=== PATIENT | female | born 1985 | race Caucasian/White ===

== ENCOUNTER 2022-03-09 11:48 | Inpatient (IN) | payer OTHER ==
[2022-03-09 12:25] VITALS: BMI 45.3
[2022-03-09] MEDS ORDERED: hydrALAZINE 20 MG/ML VIAL SLOW IVP PRN ×2 (12:47→13:26)
[2022-03-09] MEDS ORDERED: Labetalol HCl 100 MG/20 ML VIAL SLOW IVP PRN (12:47)
[2022-03-09] MEDS ORDERED: Promethazine HCl 25 MG/ML VIAL IM PRN (13:26)
[2022-03-09] MEDS ORDERED: Calcium Gluc 4.6 MEQ/10 ML (100 MG/ML) SLOW IVP PRN (13:26)
[2022-03-09] MEDS ORDERED: Lorazepam 2 MG/ML VIAL SLOW IVP PRN (13:26)
[2022-03-09] MEDS ORDERED: Magnesium Sulfate 20 gm/500 ml 20 GM/500 ML BAG ONE (13:41)
[2022-03-09] MEDS ORDERED: Betamet Acet/Betamet Na Ph 30 MG/5 ML VIAL ONE (13:54)
[2022-03-09 13:57] LABS: #Neutrophils 11.7 10x3/uL (1.5-8.4); %Basophils 0.1 % (0.0-2.0); %Eosinophils 0.1 % (0.0-6.0); %Lymphocytes 8.8 % (18.0-47.0); %Monocytes 7.2 % (0.0-10.0); %Neutrophils 83.2 % (40.0-75.0); Hemoglobin 13.4 g/dL (12.0-15.5); Mean Corpuscular HGB CONC 33.4 g/dL (32.0-36.0); Mean Corpuscular Hemoglobin 30.9 pg (27.0-33.0); Mean Corpuscular Volume 92.4 fl (81.6-98.3); Mean Platelet Volume 11.6 fl (7.4-10.4); Platelet Count 226 10x3/uL (150-450); RBC Distribution Width 13.2 % (11.5-14.5); Red Blood Cell (RBC) Count 4.34 10x6/uL (3.90-5.03); White Blood Cell (WBC) Count 14.1 10x3/uL (3.5-10.5)
[2022-03-09 14:01] LABS: ALT (SGPT) 17 U/L (8-55); AST (SGOT) 19 U/L (5-34); Albumin 3.6 g/dL (3.5-5.0); Alkaline Phosphatase 91 U/L (40-110); Anion Gap 16 mmol/L (10-20); BUN (Urea Nitrogen) 5 mg/dL (7.0-18.7); Bilirubin, Total 0.3 mg/dL (0.2-1.2); Calc. Creatinine Clearance 225 mL/min (70-130); Calcium 9.3 mg/dL (7.8-10.44); Carbon Dioxide 24 mmol/L (22-29); Chloride 102 mmol/L (98-107); Globulin 3.4 g/dL (2.4-3.5); Glucose 70 mg/dL (70-105); Potassium 3.5 mmol/L (3.5-5.1); Sodium 138 mmol/L (136-145)
[2022-03-09] MEDS: Magnesium Sulfate 20 gm/500 ml 20 GM/500 ML BAG IVPB SCH ×2 (14:03→22:58)
[2022-03-09] MEDS: Lactated Ringer's 1,000 ML IV SCH (14:09)
[2022-03-09] MEDS ORDERED: Labetalol HCl 100 MG TAB PO SCH ×2 (14:30→21:00)
[2022-03-09 14:50] LABS: Creatinine, Urine 176.72 mg/dL (47-110)
[2022-03-09 15:32] LABS: Syphilis Antibody Nonreactive (Nonreactive); Syphilis Antibody Index 0.03 S/CO (<1.00 Non-Reactive)
[2022-03-09 15:33] LABS: HBSAg Index 0.13 S/CO (0-0.99); HIV (1/2) Antibody/Antigen Non-Reactive (NonReactive); HIV 1/2 INDEX 0.04 S/CO (<1.00); Hep B Surf Ag Non-Reactive S/CO (NonReactive)
[2022-03-09] MEDS: Betamet Acet/Betamet Na Ph 30 MG/5 ML VIAL IM SCH (15:34)
[2022-03-09] MEDS: Acetaminophen 500 MG TAB PO PRN (18:41)
[2022-03-09] MEDS: Labetalol HCl 200 MG TAB PO SCH (20:54)
[2022-03-09] MEDS: HYDROcodone/Acetaminophen 5/325 mg Tablet PO PRN (21:49)
[2022-03-10] MEDS: Ondansetron PF 4 MG/2 ML Vial IVP PRN ×2 (01:10→11:23)
[2022-03-10] MEDS: Lactated Ringer's 1,000 ML IV SCH ×3 (01:11→21:42)
[2022-03-10] MEDS: HYDROcodone/Acetaminophen 5/325 mg Tablet PO PRN ×3 (01:53→10:12)
[2022-03-10] MEDS ORDERED: HumaLOG 300 UNITS/3 ML VIAL SC PRN (07:40)
[2022-03-10] MEDS ORDERED: Dextrose 5% in Water 1,000 ML IV PRN (07:40)
[2022-03-10] MEDS ORDERED: Dextrose 50% Abboject 50 ML SYRINGE SLOW IVP PRN (07:40)
[2022-03-10] MEDS: Magnesium Sulfate 20 gm/500 ml 20 GM/500 ML BAG IVPB SCH (08:53)
[2022-03-10] MEDS: Labetalol HCl 200 MG TAB PO SCH ×2 (08:54→20:15)
[2022-03-10] MEDS: Betamet Acet/Betamet Na Ph 30 MG/5 ML VIAL IM SCH (15:09)
[2022-03-10] MEDS ORDERED: hydrALAZINE 20 MG/ML VIAL SLOW IVP PRN (18:49)
[2022-03-10] MEDS ORDERED: Labetalol HCl 100 MG/20 ML VIAL SLOW IVP PRN (18:54)
[2022-03-11] MEDS: Labetalol HCl 200 MG TAB PO SCH ×2 (07:45→21:01)
[2022-03-11] MEDS: diphenhydrAMINE 25 MG CAP PO PRN (12:31)
[2022-03-12] MEDS: diphenhydrAMINE 25 MG CAP PO PRN (01:23)
[2022-03-12 05:35] LABS: Hemoglobin 11.6 g/dL (12.0-15.5); Mean Corpuscular Hemoglobin 30.9 pg (27.0-33.0); Mean Corpuscular Volume 93.9 fl (81.6-98.3); Mean Platelet Volume 11.2 fl (7.4-10.4); Platelet Count 193 10x3/uL (150-450); RBC Distribution Width 13.7 % (11.5-14.5); Red Blood Cell (RBC) Count 3.75 10x6/uL (3.90-5.03); White Blood Cell (WBC) Count 8.8 10x3/uL (3.5-10.5)
[2022-03-12 05:55] LABS: ALT (SGPT) 13 U/L (8-55); AST (SGOT) 16 U/L (5-34); Albumin 3.1 g/dL (3.5-5.0); Alkaline Phosphatase 77 U/L (40-110); Anion Gap 17 mmol/L (10-20); BUN (Urea Nitrogen) 4 mg/dL (7.0-18.7); Bilirubin, Total 0.2 mg/dL (0.2-1.2); Calc. Creatinine Clearance 253 mL/min (70-130); Calcium 8.1 mg/dL (7.8-10.44); Carbon Dioxide 18 mmol/L (22-29); Chloride 109 mmol/L (98-107); Globulin 2.9 g/dL (2.4-3.5); Glucose 78 mg/dL (70-105); Potassium 3.7 mmol/L (3.5-5.1); Sodium 140 mmol/L (136-145)
[2022-03-12] MEDS ORDERED: NIFEdipine 10 MG CAP PO PRN (06:20)
[2022-03-12] MEDS: Labetalol HCl 200 MG TAB PO SCH ×2 (08:54→21:09)
[2022-03-13] MEDS: Labetalol HCl 200 MG TAB PO SCH (07:44)
[2022-03-13] MEDS ORDERED: Labetalol HCl 100 MG TAB PO SCH (08:15)
[2022-03-13] MEDS ORDERED: NIFEdipine 10 MG CAP PO PRN (19:54)
[2022-03-13] MEDS: Labetalol HCl 100 MG TAB PO SCH (21:13)
[2022-03-14] MEDS: Labetalol HCl 100 MG TAB PO SCH ×2 (08:46→20:07)
[2022-03-15] MEDS: Labetalol HCl 100 MG TAB PO SCH ×2 (08:50→22:23)
[2022-03-16] MEDS: Labetalol HCl 100 MG TAB PO SCH ×2 (09:14→21:16)
[2022-03-16 09:30] LABS: Hemoglobin 11.7 g/dL (12.0-15.5); Mean Corpuscular HGB CONC 33.2 g/dL (32.0-36.0); Mean Corpuscular Hemoglobin 31.2 pg (27.0-33.0); Mean Corpuscular Volume 93.9 fl (81.6-98.3); Mean Platelet Volume 11.1 fl (7.4-10.4); Platelet Count 189 10x3/uL (150-450); RBC Distribution Width 13.2 % (11.5-14.5); Red Blood Cell (RBC) Count 3.75 10x6/uL (3.90-5.03); White Blood Cell (WBC) Count 9.7 10x3/uL (3.5-10.5)
[2022-03-17 05:32] LABS: ALT (SGPT) 10 U/L (8-55); AST (SGOT) 16 U/L (5-34); Alkaline Phosphatase 84 U/L (40-110); Anion Gap 15 mmol/L (10-20); BUN (Urea Nitrogen) 5 mg/dL (7.0-18.7); Bilirubin, Total 0.3 mg/dL (0.2-1.2); Calc. Creatinine Clearance 240 mL/min (70-130); Calcium 8.8 mg/dL (7.8-10.44); Carbon Dioxide 21 mmol/L (22-29); Chloride 107 mmol/L (98-107); Glucose 87 mg/dL (70-105); Sodium 139 mmol/L (136-145)
[2022-03-17] MEDS: Labetalol HCl 100 MG TAB PO SCH ×2 (08:33→21:33)
[2022-03-18] MEDS: Labetalol HCl 100 MG TAB PO SCH ×2 (07:51→19:49)
[2022-03-19 08:33] LABS: Hemoglobin 12.6 g/dL (12.0-15.5); Mean Corpuscular HGB CONC 33.2 g/dL (32.0-36.0); Mean Corpuscular Hemoglobin 30.9 pg (27.0-33.0); Mean Corpuscular Volume 92.9 fl (81.6-98.3); Mean Platelet Volume 11.3 fl (7.4-10.4); Platelet Count 236 10x3/uL (150-450); RBC Distribution Width 12.9 % (11.5-14.5); Red Blood Cell (RBC) Count 4.08 10x6/uL (3.90-5.03)
[2022-03-19] MEDS: Labetalol HCl 100 MG TAB PO SCH ×2 (08:42→21:24)
[2022-03-20 07:44] LABS: ALT (SGPT) 16 U/L (8-55); AST (SGOT) 19 U/L (5-34); Albumin 3.2 g/dL (3.5-5.0); Alkaline Phosphatase 91 U/L (40-110); Anion Gap 13 mmol/L (10-20); BUN (Urea Nitrogen) 5 mg/dL (7.0-18.7); Bilirubin, Total 0.3 mg/dL (0.2-1.2); Calc. Creatinine Clearance 228 mL/min (70-130); Calcium 9.3 mg/dL (7.8-10.44); Carbon Dioxide 23 mmol/L (22-29); Chloride 103 mmol/L (98-107); Estimated GFR 119; Globulin 3.2 g/dL (2.4-3.5); Glucose 79 mg/dL (70-105); Protein, Total 6.4 g/dL (6.0-8.3); Sodium 135 mmol/L (136-145)
[2022-03-20] MEDS: Labetalol HCl 100 MG TAB PO SCH ×2 (08:30→20:56)
[2022-03-21] MEDS ORDERED: Bupivacaine/Epinephrine 0.25% 30 ML VIAL ONE (08:00)
[2022-03-21] MEDS: Labetalol HCl 100 MG TAB PO SCH ×2 (08:49→20:57)
[2022-03-21] MEDS ORDERED: Lidocaine 1% (PF) 30 ML VIAL SC PRN (11:14)
[2022-03-21] MEDS ORDERED: Misoprostol 200 MCG TAB PR PRN (11:14)
[2022-03-21] MEDS ORDERED: Carboprost 250 MCG/ML AMP IM PRN (11:14)
[2022-03-21] MEDS ORDERED: Ibuprofen 800 MG TAB PO PRN (11:14)
[2022-03-21] MEDS ORDERED: NS w/ Oxytocin 30 units 500 ML IV SCH (11:15)
[2022-03-21] MEDS ORDERED: Calcium Gluc 4.6 MEQ/10 ML (100 MG/ML) SLOW IVP PRN (11:20)
[2022-03-21] MEDS ORDERED: Lorazepam 2 MG/ML VIAL SLOW IVP PRN (11:20)
[2022-03-21] MEDS ORDERED: Magnesium Sulfate 20 gm/500 ml 20 GM/500 ML BAG ONE (11:21)
[2022-03-21] MEDS ORDERED: Misoprostol 100 MCG TAB ONE (11:22)
[2022-03-21] MEDS: Misoprostol 100 MCG TAB VAG SCH ×4 (11:45→23:59)
[2022-03-21] MEDS: Acetaminophen 500 MG TAB PO PRN (18:11)
[2022-03-21] MEDS: HYDROcodone/Acetaminophen 5/325 mg Tablet PO PRN (19:11)
[2022-03-21] MEDS: Magnesium Sulfate 20 gm/500 ml 20 GM/500 ML BAG IVPB SCH (19:57)
[2022-03-21] MEDS: Ondansetron PF 4 MG/2 ML Vial IVP PRN (22:55)
[2022-03-22] MEDS ORDERED: NS w/ Oxytocin 30 units 500 ML IV SCH (03:15)
[2022-03-22] MEDS: HYDROcodone/Acetaminophen 5/325 mg Tablet PO PRN (03:23)
[2022-03-22] MEDS ORDERED: Ibuprofen 600 MG TAB PO SCH (04:45)
[2022-03-22] MEDS ORDERED: Penicillin G Potassium 5 MILL.UNITS in Sodium Chloride 0.9% 100 ML IVPB SCH (05:00)
[2022-03-22] MEDS: Magnesium Sulfate 20 gm/500 ml 20 GM/500 ML BAG IVPB SCH (05:52)
[2022-03-22] MEDS ORDERED: Fentanyl 2 mcg/Bup 0.1% Cadd 100 ML ONE ×2 (06:11→14:58)
[2022-03-22] MEDS ORDERED: Ondansetron PF 4 MG/2 ML Vial IVP PRN (07:42)
[2022-03-22] MEDS ORDERED: Naloxone HCl 0.4 mg/ml Vial IVP PRN ×2 (07:42)
[2022-03-22] MEDS ORDERED: Lactated Ringer's 500 ML IV PRN (07:42)
[2022-03-22] MEDS ORDERED: diphenhydrAMINE 50 MG/ML VIAL IVP PRN (07:42)
[2022-03-22] MEDS ORDERED: ePHEDrine Sulfate 50 MG/10 ML VIAL SLOW IVP PRN (07:42)
[2022-03-22] MEDS ORDERED: Promethazine HCl 25 MG/ML VIAL IM PRN (07:42)
[2022-03-22] MEDS ORDERED: Moisturizing Cream (Eucerin) 113 GM JAR TOP PRN (07:42)
[2022-03-22] MEDS ORDERED: Acetaminophen 325 MG TAB PO PRN (07:42)
[2022-03-22] MEDS ORDERED: Communication Order-Pharmacy FS SCH (07:45)
[2022-03-22] MEDS ORDERED: Fentanyl 2 mcg/Bupivacaine 0.1% Cassette 100 ML EPIDURAL SCH (07:45)
[2022-03-22] MEDS: Ondansetron PF 4 MG/2 ML Vial IVP PRN (07:59)
[2022-03-22 08:23] LABS: Hemoglobin 12.2 g/dL (12.0-15.5); Mean Corpuscular HGB CONC 32.5 g/dL (32.0-36.0); Mean Corpuscular Hemoglobin 31.1 pg (27.0-33.0); Mean Corpuscular Volume 95.7 fl (81.6-98.3); Mean Platelet Volume 11.4 fl (7.4-10.4); Platelet Count 210 10x3/uL (150-450); RBC Distribution Width 13.5 % (11.5-14.5); Red Blood Cell (RBC) Count 3.92 10x6/uL (3.90-5.03); White Blood Cell (WBC) Count 10.5 10x3/uL (3.5-10.5)
[2022-03-22] MEDS: Labetalol HCl 100 MG TAB PO SCH ×2 (08:53→21:06)
[2022-03-22] MEDS: Penicillin G 2.5 MILL.units 2.5 MILL.UNITS in Premix Bag 1 BAG IVPB SCH ×3 (11:54→19:01)
[2022-03-22] MEDS ORDERED: Betamet Acet/Betamet Na Ph 30 MG/5 ML VIAL ONE (12:16)
[2022-03-22] MEDS: Acetaminophen 500 MG TAB PO PRN (14:51)
[2022-03-22] MEDS ORDERED: Fentanyl 100 MCG/2 ML VIAL ONE (16:13)
[2022-03-22 16:57] LABS: RapidComm Collect By NURSE; pH (Cord, venous) 7.355 (7.250-7.350)
[2022-03-22] MEDS: Misoprostol 100 MCG TAB VAG SCH ×2 (19:00→21:06)
[2022-03-23] MEDS: Magnesium Sulfate 20 gm/500 ml 20 GM/500 ML BAG IVPB SCH ×2 (00:22→10:30)
[2022-03-23] MEDS: Ibuprofen 800 MG TAB PO PRN ×2 (06:41→14:42)
[2022-03-23] MEDS: Misoprostol 100 MCG TAB VAG SCH ×2 (06:41→06:42)
[2022-03-23] MEDS: Penicillin G 2.5 MILL.units 2.5 MILL.UNITS in Premix Bag 1 BAG IVPB SCH (06:42)
[2022-03-23] MEDS ORDERED: HYDROcodone/Acetaminophen 5/325 mg Tablet PO PRN ×4 (08:37→17:13)
[2022-03-23] MEDS: Labetalol HCl 100 MG TAB PO SCH ×2 (08:52→21:25)
[2022-03-23] MEDS ORDERED: Preparation H Ointment 28 GM TUBE PR PRN (17:13)
[2022-03-23] MEDS ORDERED: Lanolin Ointment 7 GM TUBE TOP PRN (17:13)
[2022-03-23] MEDS ORDERED: hydrALAZINE 20 MG/ML VIAL SLOW IVP PRN (17:13)
[2022-03-23] MEDS ORDERED: Milk Of Magnesia 30 ML UDCUP PO PRN (17:13)
[2022-03-23] MEDS ORDERED: Bisacodyl 10 MG SUPP PR PRN (17:13)
[2022-03-23] MEDS ORDERED: Ondansetron PF 4 MG/2 ML Vial IVP PRN (17:13)
[2022-03-23] MEDS ORDERED: diphenhydrAMINE 25 MG CAP PO PRN (17:13)
[2022-03-23] MEDS ORDERED: Ferrous Sulfate 325 MG TAB PO SCH (18:00)
[2022-03-23] MEDS: Ibuprofen 800 MG TAB PO SCH (21:24)
[2022-03-23] MEDS: Docusate 100 MG CAP PO SCH (21:25)
[2022-03-24] MEDS: Ibuprofen 800 MG TAB PO SCH ×3 (05:19→21:28)
[2022-03-24] MEDS: Penicillin G 2.5 MILL.units 2.5 MILL.UNITS in Premix Bag 1 BAG IVPB SCH ×2 (05:57→05:58)
[2022-03-24] MEDS: Misoprostol 100 MCG TAB VAG SCH (05:57)
[2022-03-24] MEDS: Ferrous Sulfate 325 MG TAB PO SCH ×2 (09:03→16:28)
[2022-03-24] MEDS: Prenatal Vitamin 1 TAB PO SCH (09:06)
[2022-03-24] MEDS: Docusate 100 MG CAP PO SCH ×2 (09:06→21:29)
[2022-03-24] MEDS: Labetalol HCl 100 MG TAB PO SCH ×2 (09:06→21:29)
[2022-03-24] MEDS ORDERED: Boostrix 0.5 ML (Tdap) VIAL IM ONE (17:13)
[2022-03-25] MEDS: Ibuprofen 800 MG TAB PO SCH (05:19)
[2022-03-25 05:57] VITALS: TEMP 97.9
[2022-03-25] MEDS: Ferrous Sulfate 325 MG TAB PO SCH (07:31)
[2022-03-25 08:21] VITALS: BP 138/77
[2022-03-25] MEDS: Labetalol HCl 100 MG TAB PO SCH (10:00)
[2022-03-25] MEDS: Docusate 100 MG CAP PO SCH (10:00)
[2022-03-25] MEDS: Prenatal Vitamin 1 TAB PO SCH (10:00)
== END 2022-03-25 10:20 | disposition home or self-care (01) | DRG 807 ==
LOC: CSHLD/OP 11:48 → CSHLD 14:31 → CSHANTE 03-10 20:58 → CSHLD 03-21 10:42 → CSHPP 03-23 18:15
PROVIDERS: ADMIT Obstetrics & Gynecology; ATTEND Obstetrics & Gynecology
PROC: 3E0P7VZ Introduction of Hormone into Female Reproductive, Via Natural or Artificial Opening (ICD-10-PCS; 2022-03-21)
PROC: 10E0XZZ Delivery of Products of Conception, External Approach (ICD-10-PCS; principal; 2022-03-22)
PROC: 10907ZC Drainage of Amniotic Fluid, Therapeutic from Products of Conception, Via Natural or Artificial Opening (ICD-10-PCS; 2022-03-22)
DX: O14.14 Severe pre-eclampsia complicating childbirth (principal); Z37.0 Single live birth; Z3A.30 30 weeks gestation of pregnancy; Z20.822 Contact with and (suspected) exposure to COVID-19; F41.9 Anxiety disorder, unspecified; K21.9 Gastro-esophageal reflux disease without esophagitis; O99.344 Other mental disorders complicating childbirth; O99.62 Diseases of the digestive system complicating childbirth; Z90.89 Acquired absence of other organs; Z79.899 Other long term (current) drug therapy; Z88.1 Allergy status to other antibiotic agents
CPT/HCPCS: 36415; 36416; 51702; 76815; 76819; 80053; 82570; 82805; 84156; 85025; 85027; 86780; 86850; 86900; 86901; 87340; 87389; 99285; J0360; J0702; J2405; J2540; J2590; J3475; J3490; J7120; U0003; U0005